=== PATIENT | female | born 1965 | race Caucasian/White ===

== ENCOUNTER 2023-09-26 11:34 | Outpatient (CLI) | payer OTHER, SELFPAY ==
--- NOTE | ~2023-09-26 | US_ITS ---
Thyroid ultrasound. Clinical History: Enlarged thyroid gland Findings: Real-time sonography of the thyroid gland was performed. The right lobe measures 5.5 x 1.4 x 1.6 cm. The left lobe measures 4.2 x 1.4 x 1.4 cm. The isthmus is 3 mm in AP diameter. Possible 2.5 x 1.4 x 1.7 cm minimally hyperechoic solid nodule at the right lower pole. Questionable 0.6 cm isoechoic solid nodule at the left upper pole. Impression: Possible subtle 2.5 cm solid nodule right lower pole, TR-3. Given size, FNA recommended to establish a histologic diagnosis, versus annual follow-up ultrasound.. Reviewed, dictated and finalized at location . Impression: Possible subtle 2.5 cm solid nodule right lower pole, TR-3. Given size, FNA rec ommended to establish a histologic diagnosis, versus annual follow-up elif stover.
== END 2023-09-26 11:35 ==
PROVIDERS: PCP Physician Assistant; Visit Provider Physician Assistant
DX: E04.9 Nontoxic goiter, unspecified (principal)
CPT/HCPCS: 76536